=== PATIENT | male | born 1955 | race Two or more races ===

== ENCOUNTER → 2020-05-20 | Day surgery (SDC) | payer MEDICARE, MEDICAID ==
[~2020-05-20] VITALS: Ht 180.3 cm; Wt 129.3 kg
[~2020-05-20] MED LIST: AMIT50TA3 PO; ANGIOMAX 250 MG VIAL IV ONE; ASPI-231 PO; ATOR10TA52 PO; FURO40TA4 PO; GABA300C10 PO; GLIM2TAB33 PO; HEPARIN SODIUM (PORCINE) 5000 UNITS/ML 1ML VIAL ONE; IODIXANOL 320MG/ML 100ML BTL IV ONE; ISOS20TA56 PO; LIDOCAINE 2%HCL (LOCAL ANESTH.) INJ 20ML MDV ONE; METO-169 PO; MIDAZOLAM HCL 1MG/1ML-2 ML VIAL ONE; OMEP20TA PO; SODIUM CHL 0.9% 0 ML ONE; SODIUM CHL 0.9% 50 ML ONE; VERAPAMIL 2.5MG/ML INJ 2ML VIAL IV ONE; fentaNYL CITRATE 100 MCG/2 ML VL ONE
== END | disposition home or self-care (01) ==
LOC: CATH 06:55
PROVIDERS: ATTEND Internal Medicine
DX: R07.89 Other chest pain (principal); I25.10 Atherosclerotic heart disease of native coronary artery without angina pectoris; E11.22 Type 2 diabetes mellitus with diabetic chronic kidney disease; I12.0 Hypertensive chronic kidney disease with stage 5 chronic kidney disease or end stage renal disease; N18.6 End stage renal disease; Z99.2 Dependence on renal dialysis; Z20.828 Contact with and (suspected) exposure to other viral communicable diseases; Z98.890 Other specified postprocedural states; Z68.39 Body mass index [BMI] 39.0-39.9, adult
CPT/HCPCS: 93005; 93454; C1769; C1887; C1894; J1644; J2250; J3010; Q9967; U0003; 99152